=== PATIENT | male | born 1940 | race Caucasian/White ===

== ENCOUNTER → 2017-01-25 | Outpatient (CLI) | payer MEDICARE ==
[~2017-01-25] MED LIST: BISA10SU2 PR; CHLO25CA9 PO; CITA20TA9 PO; CYAN500T2 PO; DOCU100C8 PO; FOLI-17 PO; FOLI0.8T2 PO; FURO40TA6 PO; LACT10SO5 PO; MAGN400T26 PO; MULT-208 PO; OMEP-110 PO; OXYC5TAB3 PO; POLY17PO5 PO; POTA10TA11 PO; REGADENOSON 0.4 MG/5 ML SYRINGE ONE; RIFA550T PO; SPIR25TA PO; THIA100T10 PO; THIA100T27 PO; TRAM50TA2 PO
== END | disposition home or self-care (01) ==
LOC: CFH 07:37
PROVIDERS: ATTEND Internal Medicine Cardiovascular Disease
DX: Z01.810 Encounter for preprocedural cardiovascular examination (principal); I48.91 Unspecified atrial fibrillation
CPT/HCPCS: 78452; 93017; A9502; J2785

== ENCOUNTER 2017-03-08 07:54 | Day surgery (SDC) | payer MEDICARE ==
[~2017-03-08] VITALS: Ht 182.9 cm; Wt 77.3 kg
[~2017-03-08 07:54] MED LIST changes: +BIFI4CAP PO; +BUPIVACAINE/PF 0.5% ONE; +DOCU100C33 PO; -DOCU100C8 PO; +EPINEPHRINE 1 MG/ML, 1ML ONE; +FURO-92 PO; +POTA20TA89 PO; +PSYL3.4P5 PO; -REGADENOSON 0.4 MG/5 ML SYRINGE ONE; -RIFA550T PO; +RIFA550T4 PO; +SPIR50TA2 PO
[2017-03-08] MEDS ORDERED: LACTATED RINGERS 1,000 ML IV SCH (08:28)
[2017-03-08 08:53] VITALS: BP 109/65
[2017-03-08] MEDS ORDERED: FENTANYL PF 100 MCG/2ML ONE ×2 (09:59→11:38)
[2017-03-08] MEDS ORDERED: PROPOFOL 10 MG/ML, 20ML ONE (10:05)
[2017-03-08] MEDS ORDERED: CEFAZOLIN 1,000 MG ONE (10:05)
[2017-03-08] MEDS ORDERED: ONDANSETRON 2MG/ML, 2ML ONE (10:05)
[2017-03-08] MEDS ORDERED: DEXAMETHASONE 4 MG/ML, 5ML ONE (10:05)
[2017-03-08] MEDS ORDERED: morphine SULFATE 10 MG/ML, 1ML IVPush PRN (11:30)
[2017-03-08] MEDS ORDERED: morphine SULFATE 10 MG/ML, 1ML IV PRN (11:30)
[2017-03-08] MEDS ORDERED: KETOROLAC 30 MG/1 ML IVPush PRN (11:30)
[2017-03-08] MEDS ORDERED: FENTANYL PF 100 MCG/2ML IV PRN (11:30)
[2017-03-08] MEDS ORDERED: OXYcodone 5 MG/5 ML ORAL.SOL UDC PO PRN ×2 (11:30)
[2017-03-08] MEDS ORDERED: PROMETHAZINE 25 MG/ML, 1ML IV PRN (11:30)
[2017-03-08] MEDS ORDERED: KETOROLAC 30 MG/1 ML IV PRN (11:30)
[2017-03-08] MEDS ORDERED: ONDANSETRON 2MG/ML, 2ML IVPush PRN (11:30)
[2017-03-08] MEDS ORDERED: MIDAZOLAM 1 MG/ML, 2ML IV PRN (11:30)
[2017-03-08] MEDS ORDERED: OXYcodone 5 MG/5 ML ORAL.SOL UDC ONE (11:38)
[2017-03-08] MEDS ORDERED: KETOROLAC 30 MG/1 ML ONE (11:38)
== END 2017-03-08 13:15 ==
LOC: OUT 07:54
PROVIDERS: ATTEND Surgery
DX: K40.90 Unilateral inguinal hernia, without obstruction or gangrene, not specified as recurrent (principal); K74.69 Other cirrhosis of liver; K76.6 Portal hypertension; I25.10 Atherosclerotic heart disease of native coronary artery without angina pectoris; E78.5 Hyperlipidemia, unspecified; Z96.652 Presence of left artificial knee joint; Z88.8 Allergy status to other drugs, medicaments and biological substances
CPT/HCPCS: 49505; C1781; J0171; J0690; J1100; J1885; J2405; J2704; J3010; J3490; J7120

== ENCOUNTER 2017-07-26 15:46 | Emergency (ER) | payer MEDICARE ==
[~2017-07-26] VITALS: Ht 182.9 cm; Wt 79.0 kg
[~2017-07-26 15:46] MED LIST changes: -BUPIVACAINE/PF 0.5% ONE; -EPINEPHRINE 1 MG/ML, 1ML ONE
[2017-07-26 17:31] VITALS: BP 105/59
== END 2017-07-26 18:43 | disposition home or self-care (01) ==
LOC: ED 17:01
DX: S00.03XA Contusion of scalp, initial encounter (principal); I10 Essential (primary) hypertension; K21.9 Gastro-esophageal reflux disease without esophagitis; F10.120 Alcohol abuse with intoxication, uncomplicated; W01.0XXA Fall on same level from slipping, tripping and stumbling without subsequent striking against object, initial encounter; Y93.89 Activity, other specified; Y99.8 Other external cause status; Y92.009 Unspecified place in unspecified non-institutional (private) residence as the place of occurrence of the external cause
CPT/HCPCS: 70450; 72125; 99284

== ENCOUNTER 2018-02-27 16:45 | Emergency (ER) | payer MEDICARE ==
[~2018-02-27] VITALS: Ht 182.9 cm; Wt 80.0 kg
[~2018-02-27 16:45] MED LIST changes: -SPIR50TA2 PO; +SPIR50TA4 PO
[2018-02-27] MEDS ORDERED: LIDOCAINE 2%, 20ML INFIL ONE (17:00)
[2018-02-27] MEDS ORDERED: L.E.T SOLUTION TP ONE ×2 (17:00→17:07)
[2018-02-27] MEDS ORDERED: BACITRACIN ZINC OINT 500U/GM, 0.9 GM ONE (17:07)
[2018-02-27] MEDS ORDERED: LIDOCAINE-MPF 2%, 2ML ONE (17:44)
[2018-02-27 18:56] VITALS: BP 124/68
== END 2018-02-27 18:58 | disposition home or self-care (01) ==
LOC: ED 18:45
DX: S01.01XA Laceration without foreign body of scalp, initial encounter (principal); S50.312A Abrasion of left elbow, initial encounter; S80.812A Abrasion, left lower leg, initial encounter; I48.91 Unspecified atrial fibrillation; K21.9 Gastro-esophageal reflux disease without esophagitis; W01.0XXA Fall on same level from slipping, tripping and stumbling without subsequent striking against object, initial encounter; Y93.89 Activity, other specified; Y92.89 Other specified places as the place of occurrence of the external cause; Y99.8 Other external cause status
CPT/HCPCS: 12002; 70450; 99284; J3490